=== PATIENT | male | born 2000 | race Caucasian/White ===

== ENCOUNTER 2024-10-30 15:08 | Emergency (ER) | payer OTHER, SELFPAY ==
--- NOTE | ~2024-10-30 | XR_ITS ---
EXAMINATION: XR HAND, LEFT CLINICAL INFORMATION: trauma. Injury 6 weeks ago with hydropic machine. COMPARISON: None available. TECHNIQUE: PA, lateral, and oblique views of the left hand. FINDINGS: There are nondisplaced transverse fractures of mid diaphysis of mid phalanx third and fourth digits with mild soft tissue swelling. There is no callus formation seen yet. Rest of the phalanges and the metacarpals are unremarkable. The joint spaces are well aligned. There is no dislocation. XR/XR hand LT min 3V IMPRESSION: Nondisplaced fractures of mid diaphysis middle phalanx third and fourth digit. Moderate soft tissue swelling. Electronically signed by: Rick Hoffman MD 10/30/2024 04:01 PM EDT
[2024-10-30 15:32] VITALS: BP 132/92; PULSE 109; RESP 20; TEMP 36.9; O2SAT 96; BMI 16.9
--- NOTE | 2024-10-30 15:33 | ED.GENADULT ---
HPI - General Adult General Chief complaint: Extremity Problem Stated complaint: Work injury Time Seen by Provider: 10/30/24 16:46 Source: patient, RN notes reviewed and old records reviewed Mode of arrival: ambulatory Limitations: no limitations History of Present Illness ED Provider: Ted LAW narrative: 24-year-old male presents for evaluation of a left hand injury. Patient reports he crashed his left hand at work 6 weeks ago. He was seen at urgent care and diagnosed with a fracture of the 3rd and 4th middle phalanx. He reports he was put in finger splints for about 4 weeks He was concerned because he is still not able to completely bend his left 3rd and 4th fingers. He has had no further injury. Denies any fevers until Related Data Allergies Allergy/AdvReac Type Severity Reaction Status Date / Time No Known Allergies Allergy Verified 10/30/24 15:33 Review of Systems Musculoskeletal: Musculoskeletal: Reports arthralgias, Reports joint swelling and Reports limited range of motion PMFSH Social History Social History Advance Directives: No Advance Directives Information Provided: No Do you have a plan to hurt others: No Plan Physical Exam ED Vital Signs: Vital Signs - 24 hr 10/30/24 15:32 Temperature 98.5 F Pulse Rate 109 H Respiratory Rate 20 Blood Pressure 132/92 H Pulse Oximetry 96 Oxygen Delivery Method Room Air BMI result Body Mass Index 16.9 Const General: healthy appearing, comfortable, no acute distress, alert and awake Nutritional Appearance: well nourished Orientation/consciousness: patient oriented x3 HENMT Head: Yes normocephalic and Yes atraumatic Eyes Eyelids: Yes eyelids normal Conjunctivae: conjunctivae normal Sclerae: sclerae normal Corneas: corneas normal Pupils: Equal, round and reactive pupils present EOM: EOMs intact bilaterally Neck Neck: Yes full ROM Resp Effort & Inspection: normal respiratory effort, able to speak in complete sentences and not labored Skin General skin exam: elasticity normal Neuro General: patient oriented x3 Cranial nerves: Yes Equal, round and reactive pupils present and Yes Bilaterally intact EOM present Cognition (Neuro): normal cognition Extrem Other: Is deformity to the distal half of the left 4th finger with angulation of the distal fragment. There was no significant tenderness to the 3rd and 4th digits. The patient is unable to flex at the D IP joint of the 3rd and 4th fingers Course Course Course Narrative: RME, this is a rapid medical exam performed by Chris Jean please refer to primary provider for complete H&P- 24 year old male presents for evaluation of left hand injury 6 weeks ago. He was seen for a crush injury and was referred by urgent care to see if I need physical therapy or surgery. Plan for x-ray Medical Decision Making Medical Decision Making MDM Narrative: 24-year-old male presents for evaluation left hand injury that happened 6 weeks ago. He was seen and evaluated care. Some healed lacerations on the extensor surfaces but not on the flexor surfaces. The patient's x-ray shows subacute fracture of the 3rd and 4th middle phalanx. I discussed with hand surgery, Agatha Frias, who recommends gentle range of motion exercises to the left hand but no additional splinting. He will follow up in the office. Differential Diagnosis Differential Diagnoses: The differential diagnosis associated with the presentation includes Subacute fracture Contusion Ligamentous injury Tendon injury Dislocation Consult Healthcare Provider Management of the patient was discussed with: Plant Technician/Control Room Operator Independent Interpretation I performed an independent interpretation of an: Plain X-Ray Interpretation: Agree with Radiology interpretation Radiology Impression Discussion of test interpretation with radiology: I have reviewed the radiologist's reading. Radiologist Impression: FINDINGS: There are nondisplaced transverse fractures of mid diaphysis of mid phalanx third and fourth digits with mild soft tissue swelling. There is no callus formation seen yet. Rest of the phalanges and the metacarpals are unremarkable. The joint spaces are well aligned. There is no dislocation. XR/XR hand LT min 3V IMPRESSION: Nondisplaced fractures of mid diaphysis middle phalanx third and fourth digit. Moderate soft tissue swelling. Electronically signed by: Rick Hoffman MD 10/30/2024 04:01 PM EDT Discharge Plan Discharge Clinical Impression: Finger fracture, left Patient Disposition: Home, Self-Care Instructions: Finger Fracture (ED) Additional Instructions: You have a subacute fracture of the left 3rd and 4th middle phalanx. Follow-up with hand surgery, Dr. Parr at the number provided. It was important to gently work on range of motion as discussed Referrals: Ryanne Parr MD [Physician] - (subacute left 3rd and 4th middle phalynx fractures) Stand Alone Forms: Work/School Release Print Language: Cook Islander
== END 2024-10-30 17:21 | disposition home or self-care (01) ==
PROVIDERS: Emergency Provider Emergency Medicine
DX: S62.653A Nondisplaced fracture of middle phalanx of left middle finger, initial encounter for closed fracture (principal); S62.655A Nondisplaced fracture of middle phalanx of left ring finger, initial encounter for closed fracture; W31.89XA Contact with other specified machinery, initial encounter; Y93.89 Activity, other specified; Y92.89 Other specified places as the place of occurrence of the external cause; Y99.0 Civilian activity done for income or pay
CPT/HCPCS: 73130; 99281; 99283

== ENCOUNTER → 2024-10-30 15:34 | Outpatient (BNV) | payer SELFPAY | PROVIDERS: Visit Provider Radiology Diagnostic Radiology | DX: S62.654A Nondisplaced fracture of middle phalanx of right ring finger, initial encounter for closed fracture (principal); S62.652A Nondisplaced fracture of middle phalanx of right middle finger, initial encounter for closed fracture | CPT/HCPCS: 73130 ==

== ENCOUNTER 2024-12-04 09:00 | Outpatient (REF) | payer OTHER, SELFPAY ==
--- NOTE | ~2024-12-04 | XR_ITS ---
EXAMINATION: XR HAND 3 OR MORE VIEWS LEFT HISTORY: M79.642 - Pain in left hand COMPARISON: Comparison is made with the prior examination dated 10/30/2024. FINDINGS: Three views of the left hand are submitted. Osseous mineralization is normal. Again seen are fractures of the middle phalanges of the 3rd and 4th fingers. Again seen is a small amount of bridging bone involving both fractures, slightly greater than on the prior study. The fracture lines remain visible. The joint spaces are preserved. The soft tissues are unremarkable. XR/XR hand LT min 3V IMPRESSION: Healing fractures of the middle phalanges of the 3rd and 4th fingers. Electronically signed by: Erik Rainey MD 12/04/2024 10:01 AM EDT
--- OUTSIDE RECORDS SUMMARY | 2024-12-05 09:25 | XMS_ITS | Data Portability ---
Author Organization [facility] [address] Address [address] [place] [address] Assessment No assessment recorded. Plan of Treatment Reminders Order Date Submit Date Provider Last Modified By Organization Details Last Modified Time Details Appointments None record ed. Lab None record ed. Referral None record ed. Procedures None record ed. Surgeries None record ed. Imaging None record ed. Medication Orders None record ed. Patient TargetsNo targets recorded. Patient InstructionsNo instructions recorded. Reason for Referral None Reported. Medical Equipment None Reported. Vitals None Recorded Social History None recorded. Functional Status None recorded. Mental Status None recorded. Family History Nothing Reported. Medical History No medical history recorded. Past Encounters Encounter ID Performer Location Encounter Start Date Encounter Closed Date Diagnosis/Indication Diagnosis SNOMED-CT Code Diagnosis ICD10 Code Diagnosis Note [id number] [address] [place] [address] 09/16/2019 17:31:01 09/16/2019 18:27:12 [id number] [address] [address] [place] [address] 07/01/2018 16:13:44 07/01/2018 18:03:30 [id number] [address] [place] [address] 2020 18:18:23 2020 19:15:40 [id number] [address] [place] [address] 04/20/2021 13:19:53 04/20/2021 15:49:02 [id number] [address] [facility] KRISSY Haq [address] 03/04/2022 18:57:25 03/04/2022 19:09:54 [id number] [facility] [address] [address] [place] [address] 06/16/2022 13:17:48 06/16/2022 16:26:29 Left without being seen [id number] 9102 Z53.21 Health Concerns Section Related Observation LastModified by Organization Detai ls LastModified Time None Recorded Concern Status LastModified by Organization Details LastModified Time None Recorded Advance Directives Directive None Recorded Payers Insurance Date Sequence Insurance Name Policy Number Policy June Covered Member ID June Member ID Guarantor Name 06/16/2022 1 [facility] [id number] 1 Kev Izaguirre [id number] Kev Izaguirre
== END 2024-12-04 09:01 | disposition home or self-care (01) ==
LOC: HO.HOSX 09:00
PROVIDERS: Visit Provider Orthopaedic Surgery
DX: M79.642 Pain in left hand (principal); M25.462 Effusion, left knee; S62.603A Fracture of unspecified phalanx of left middle finger, initial encounter for closed fracture; S62.605G Fracture of unspecified phalanx of left ring finger, subsequent encounter for fracture with delayed healing
CPT/HCPCS: 73130; 99202

== ENCOUNTER 2024-12-04 09:28 | Outpatient (AMB) | payer OTHER, SELFPAY ==
[2024-12-04 10:18] VITALS: BMI 16.9
--- NOTE | 2024-12-04 10:18 | MHC.OFFVIS ---
Vital Signs 12/04/24 10:18 Height 6 ft 4 in Weight 139 lb BMI 16.9 Intake Visit Reasons: ED/FC of the LT 3rd & 4th middle phalanx-DOI? Intake Note: Kev 24 yr old male presents today for a ED follow up visit from 10/30/24. Patient reports he crushed his left hand at work approx 6 weeks ago. He was seen at urgent care and was diagnosed with a fracture of the 3rd and 4th middle phalanx. He reports he was put in finger splints for about 4 weeks. Currently states he has concerns due to stiffness and limited ROM at his DIP in both of his fingers. He reports no pain. Denies numbness or tingling. Allergies No Known Allergies Allergy (Verified 12/04/24 10:20) HPI HPI ED/FC of the LT 3rd & 4th middle phalanx-DOI?: Details: Kev is a 24 year old right hand dominant man who presents for a left hand fracture. He suffered a crush injury at work on ~09/15/24. He was seen at urgent care and placed in a splint. He was seen in the ED on 10/30/24 for hand stiffness and pain. This is the 1st time he is being seen in our clinic. He says he is doing well in regards to pain. His chief complain is of limited ROM of his middle & ring fingers. He denies having any cuts on the volar aspect of his fingers when he injured his hand. He said he had some small open wounds on the dorsal aspect of the fingers, and was treated with antibiotics. 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 Review of Systems Const All systems reviewed & are unremarkable except as noted in HPI and below Physical Exam Vital Signs: BMI result Body Mass Index 16.9 Const General: cooperative, healthy appearing and no acute distress Orientation/consciousness: patient oriented x3 HEENT Head: Yes normocephalic and Yes atraumatic Eyes EOM: EOMs intact bilaterally Resp Effort & Inspection: normal respiratory effort and able to speak in complete sentences Cardio Jugular venous distension: no JVD Skin General skin exam: turgor normal Rashes: no rashes Neuro General: patient oriented x3 Extrem Other: Evaluation of Left Upper Extremity: The patient is alert, oriented, and in no acute distress Neuro: Median, Ulnar, Radial nerves motor and sensory intact and sensation is normal to the tips of all digits Vascular: Cap refill brisk ROM: He can bring all fingers into full active extension. He has active flexion at the middle & ring finger PIP joints to ~80 degrees Small amount of demonstrated flexion at the DIP joints, good resistance with active flexion. Skin: He has some healed wounds on the dorsal aspect of the middle and ring finger middle phalanxes. They have healed well with no evidence of infection. General: No Ecchymosis. No Erythema or evidence of infection. Radiographs: 3 views of the left hand were taken and viewed by me today in clinic. They show a middle finger middle phalanx shaft fracture, transvserse, with some evidence of bony healing, fracture line still visible. overall sat alignment. There is also a ring finger middle phalanx shaft fracture, transverse, healing with delayed union Psych Appearance: grossly normal Affect: normal affect Attitude: cooperative Assessment & Plan Assessment & Plan (1) Stiffness of left hand joint: Code(s): M25.642 - Stiffness of left hand, not elsewhere classified Category: Medical (2) Fracture of phalanx of left middle finger: Code(s): S62.603A - Fracture of unspecified phalanx of left middle finger, initial encounter for closed fracture Category: Medical (3) Fracture of phalanx of left ring finger with delayed healing: Code(s): S62.605G - Fracture of unspecified phalanx of left ring finger, subsequent encounter for fracture with delayed healing Category: Medical Plan Assessment & Plan: 1. Left middle finger middle phalanx fracture 2. Left ring finger middle phalanx fracture, with some evidence of delayed union. DOI: ~09/15/24 These were managed non-operatively, as patient was not seen by us until today. While radiographically there is some evidence of delayed union, both fractures are now completely nontender. This is a work injury, crush injury while working as a engineer remote control diesel. 3. Left FDP tendon dysfunction to middle finger 4. Left FDP tendon dysfunction to ring finger Most likely due to disuse and possible adhesions of FDP tendons Chances of laceration small FDS function intact I educated him about these conditions His fracture sites show evidence of healing, but are not yet fully healed I discussed treatment options I talked about activity modification and avoiding ball sports or other areas where he may jammed his finger. Fractures appear to be healing well and will likely go on to heal unless re-injured. Most importantly, she needs to start working on active range of motion exercises, and trying to get the FDP tendon to start sliding within the tendon sheath. 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 He will follow up in 6 weeks for a ROM check, sooner if he has any concerns Scribed for Ryanne Parr MD by Bean Dean, medical dosimetrist, on 12/04/24 at 10:30 AM, EST. Orders: Orders XR hand LT min 3V Today M79.642 - Pain in left hand OT Evaluation and Treatment Today M25.642 - Stiffness of left hand, not elsewhere classified, S62.603A - Fracture of unspecified phalanx of left middle finger, initial encounter for closed fracture, S62.605G - Fracture of unspecified phalanx of left ring finger, subsequent encounter for fracture with delayed healing Coding Level of Care Code New Pt Level 4 (72427) Diagnoses Stiffness of left hand joint M25.642 Fracture of phalanx of left middle finger S62.603A Fracture of phalanx of left ring finger with delayed healing S62.605G
--- OUTSIDE RECORDS SUMMARY | 2024-12-04 10:33 | XMS_ITS | Encounter Summary ---
Author Organization [facility] Address [address] [place] [address] Phone Care Team Providers Care Telephone Interviewer Name Role Phone Viral Ramirez MD Primary Care Provider [phone] Encounter Details Date Type Department Care Team (Late st Contact Info) Description 07/23/2015 Documentation EM Family Medicine [address] [place] [address] Family Medicine, Physician [address] [place], [place] [id number] Social History Tobacco Use Types Packs/Day Years Used Date Smoking Tobacco: Never Assessed Sex and Gender Information Value Date Recorded Sex Assigned at Not on file Legal Sex Male 5:07 PM EDT Gender Identity Not on file Sexual Orientation Not on file documented as of this encounter Plan of Treatment Not on file documented as of this encounter Visit Diagnoses Not on filedocumented in this encounter Care Teams Telephone Interviewer Relationship Specialty Start Date End Date Viral Ramirez MD [address] [place] [address] KRISSY Spears [id number] PCP - General 02/11/17 10/13/22 documented as of this encounter
== END 2024-12-04 10:39 | disposition home or self-care (01) ==
LOC: HO.HOS 09:29
PROVIDERS: Visit Provider Orthopaedic Surgery
DX: M25.642 Stiffness of left hand, not elsewhere classified (principal); S62.603A Fracture of unspecified phalanx of left middle finger, initial encounter for closed fracture; S62.605G Fracture of unspecified phalanx of left ring finger, subsequent encounter for fracture with delayed healing
CPT/HCPCS: 99203

== ENCOUNTER → 2024-12-04 09:30 | Outpatient (BNV) | payer OTHER, SELFPAY | PROVIDERS: Visit Provider Radiology Diagnostic Radiology | DX: S62.623D Displaced fracture of middle phalanx of left middle finger, subsequent encounter for fracture with routine healing (principal); S62.624D Displaced fracture of middle phalanx of right ring finger, subsequent encounter for fracture with routine healing | CPT/HCPCS: 73130 ==

== ENCOUNTER 2025-01-15 10:47 | Outpatient (REF) | payer OTHER, SELFPAY ==
--- NOTE | ~2025-01-15 | XR_ITS ---
EXAMINATION: XR HAND, LEFT CLINICAL INFORMATION: M79.642 - Pain in left hand, fracture healing COMPARISON: October 30 and December 04, 2024 TECHNIQUE: PA, lateral, and oblique views of the left hand. FINDINGS: Faint lucency through the central portion of the middle phalanx of third digit remains partially visible. There is evidence of remodeling and bridging cortical and cancellous bone . Fourth digit demonstrates incomplete partial lucency through the middle portion of the middle phalanx with bridging cortical and cancellous bone and early remodeling. XR/XR hand LT min 3V IMPRESSION: Continued healing of subacute fractures involving the middle phalanx of the third and fourth digits of the left hand. Electronically signed by: Shoaib Schaeffer MD 01/15/2025 02:41 PM EDT
--- OUTSIDE RECORDS SUMMARY | 2025-01-16 11:31 | XMS_ITS | Encounter Summary ---
Author Organization [facility] Address [address] [place] [address] Phone Care Team Providers Care Leather Production Machine Operator Name Role Phone Viral Ramirez MD Primary Care Provider [phone] Encounter Details Date Type Department Care Team (Late st Contact Info) Description 07/23/2015 Documentation EM Family Medicine [address] [place] [address] Family Medicine, Physician [address] [place], [place] [phone] Social History Tobacco Use Types Packs/Day Years [...] on filedocumented in this encounter Care Teams Leather Production Machine Operator Relationship Specialty Start Date End Date Viral Ramirez MD [address] [place] [address] KRISSY Spears [address] PCP - General 02/11/17 10/13/22 documented as of this encounter
--- OUTSIDE RECORDS SUMMARY | 2025-01-16 11:31 | XMS_ITS | Patient Health Record ---
[facility] Organization [facility] Address [address] [facility] [address] [place], [place] [id number] Support Name Relationship Address Phone Dmitriy Kev Guarantor Unknown [phone] Allergies No Known Allergies Reason For Referral No Information Social History Sex Assigned At : Social History Observation Description Sex Assigned At Male Section Notes: Aptima/ bw Plan Of Treatment No Information Insurance Providers Payer Name Payer Address Payer Phone Subscriber Number Group Number Insured Name Patient Relationship to Insured Coverage Start Date Coverage End Date [facility] [address] [place], [place] [id number] Kev Izaguirre Self - patient is the insured Medical (General) History Medical History History ICD Code No significant problems
== END 2025-01-15 10:48 | disposition home or self-care (01) ==
LOC: HO.HOSX 10:47
PROVIDERS: Visit Provider Orthopaedic Surgery
DX: S62.623D Displaced fracture of middle phalanx of left middle finger, subsequent encounter for fracture with routine healing (principal); S62.625G Displaced fracture of middle phalanx of left ring finger, subsequent encounter for fracture with delayed healing; W23.0XXD Caught, crushed, jammed, or pinched between moving objects, subsequent encounter; Y99.0 Civilian activity done for income or pay
CPT/HCPCS: 73130; 99212

== ENCOUNTER 2025-01-15 14:24 | Outpatient (AMB) | payer OTHER, SELFPAY ==
[2025-01-15 15:21] VITALS: BMI 16.9
--- NOTE | 2025-01-15 15:21 | MHC.OFFVIS ---
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 At his last visit he was advise to start O.T and work on his ROM. Currently states he has worked on his ROM however he is still limited. States he has no pain. Allergies No Known Allergies Allergy (Verified 01/15/25 15:26) HPI HPI OV- L MF and RF middle phalanx fx WC DOI 09/15/24: Details: Kev is a 24 year old right hand dominant man who returns for a left middle & ring finger fracture. He suffered a crush injury at work on ~09/15/24. He says he is doing well in regards to pain. His chief complain is of limited ROM of his middle & ring fingers. He says he has been working on ROM exercises at home but still feels limited in his motion.? He has not been attending OT hand therapy, and says he thought the plans was to start after today's appointment He was initially seen at urgent care and placed in a splint. He was seen in the ED on 10/30/24 for hand stiffness and pain. It looks like there was some difficulty contacting this patient and coordinating getting him in for an appointment in our clinic, therefore he was 1st seen by me in our clinic on 12/04/2024. 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 They show a middle finger middle phalanx shaft fracture, transvserse, with good evidence of bony healing and overall satisfactory fracture alignment. There is also a ring finger middle phalanx shaft fracture, healed Assessment & Plan Assessment & Plan (1) Stiffness of left hand joint: Code(s): M25.642 - Stiffness of left hand, not elsewhere classified Category: Medical (2) Fracture of phalanx of left middle finger: Code(s): S62.603A - Fracture of unspecified phalanx of left middle finger, initial encounter for closed fracture Category: Medical (3) Fracture of phalanx of left ring finger with delayed healing: Code(s): S62.605G - Fracture of unspecified phalanx of left ring finger, subsequent encounter for fracture with delayed healing Category: Medical Plan Assessment & Plan: 1. Left middle finger middle phalanx fracture healed 2. Left ring finger middle phalanx fracture, initially with some evidence of delayed union. Now with improved evidence of healing across the fracture. DOI: ~09/15/24 These were managed non-operatively, as patient was not seen by us until 12/04/2024. 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 First seen here on 12/04/24 It sounds like he initially went to an urgent care center to be seen for this injury. He was eventually seen in our emergency department in the end of January 2025. That point he was referred to our hand clinic, but there was difficulty contacting and coordinating with the patient to get him seen in clinic, and thus he was not seen until 12/04/2024 in our clinic for the 1st time. 3. Left FDP tendon dysfunction to middle finger 4. Left FDP tendon dysfunction to ring finger Most likely due to disuse and possible adhesions of FDP tendons Chances of laceration small FDS function intact I educated him about these conditions His fracture sites show good evidence of healing and are no longer tender I discussed treatment options, including possible operative intervention to free up the FDP tendons from possible tendon adhesions limiting excursion.. We will see how he is doing after OT hand therapy. He is unlikely to cause any harm to his finger fractures by doing so. I recommend OT hand therapy, and he is in agreement. He did not attend his previously ordered course of OT hand therapy as he thought he was supposed to begin OT after today. 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 It sounds like he may be having trouble with his place of employment possibly not filing the workmen's comp paperwork, as he says he has not received any money. When we saw him on 12/04/2024 we returned him to work on light duty with a 2lb weight limit at his 1st appointment with us. Again the patient said he had lost his job by that time, and he has not obtained other employment. Today, He was given a note saying he can return to work on full duty, with time off to attend OT, until his next appointment. He will follow up in 6-8 weeks for a ROM check. We can then evaluate how he is doing with regards to hand function, and whether or not it might be necessary or beneficial to consider release of adhesions from the FDP tendons.. Scribed for Ryanne Rodriguez MD by Bean Dean, medical practice assistant, on 01/15/25 at 3:40 PM, EST. Orders: Orders XR hand LT min 3V 01/15/25 M79.642 - Pain in left hand Coding Level of Care Code Est Pt Level 4 (94453) Diagnoses Stiffness of left hand joint M25.642 Fracture of phalanx of left middle finger S62.603A Fracture of phalanx of left ring finger with delayed healing S62.605G
--- OUTSIDE RECORDS SUMMARY | 2025-01-15 15:42 | XMS_ITS | Patient Health Record ---
Author Organization [facility] Address [address] [facility] [address] [place], [place] [id number] Support Name Relationship Address Phone Dmitriy Kev Guarantor Unknown [phone] Allergies No Known Allergies Reason For Referral No Information Social History Sex Assigned At : Social History Observation Description Sex Assigned At Male Section Notes: Aptima/ bw Plan Of Treatment No Information Insurance Providers Payer Name Payer Address Payer Phone Subscriber Number Group Number Insured Name Patient Relationship to Insured Coverage Start Date Coverage End Date [facility] [address] [place], [place] [id number] Kev Izaguirre Self - patient is the insured Medical (General) History Medical History History ICD Code No significant problems
--- OUTSIDE RECORDS SUMMARY | 2025-01-15 15:42 | XMS_ITS | Encounter Summary ---
Author Organization [facility] Address [address] [place] [address] Phone Care Team Providers Care Marker Shipments Name Role Phone Viral Ramirez MD Primary Care Provider [phone] Encounter Details Date Type Department Care Team (Late st Contact Info) Description 07/23/2015 Documentation EM Family Medicine [address] [place] [address] Family Medicine, Physician [address] [place], [place] [phone] Social History Tobacco Use Types Packs/Day Years [...] on filedocumented in this encounter Care Teams Marker Shipments Relationship Specialty Start Date End Date Viral Ramirez MD [address] [place] [address] KRISSY Spears [id number] PCP - General 02/11/17 10/13/22 documented as of this encounter
--- OUTSIDE RECORDS SUMMARY | 2025-01-15 15:42 | XMS_ITS | Data Portability ---
Author Organization [facility], [address] Address [address] [place] [address] Assessment No assessment recorded. Plan of Treatment [...] SNOMED-CT Code Diagnosis ICD10 Code Diagnosis Note [id number] [address] [address] [address] [place] [address] 09/16/2019 17:31:01 09/16/2019 18:27:12 [id number] [address] [address] [address] [place] [address] 07/01/2018 16:13:44 07/01/2018 18:03:30 [id number] [address] [address] [place] [address] 2020 18:18:23 2020 19:15:40 [id number] [address] [address] [place] [address] 04/20/2021 13:19:53 04/20/2021 15:49:02 [id number] [facility] [address] [facility] KRISSY Haq [address] 03/04/2022 18:57:25 03/04/2022 19:09:54 [id number] [facility] [address] [facility] [place] [address] 06/16/2022 13:17:48 06/16/2022 16:26:29 Left without being seen [id number] Z53.21 Health Concerns Section Related Observation LastModified by Organization Detai ls LastModified Time None Recorded Concern Status LastModified by Organization Details LastModified Time None Recorded Advance Directives Directive None Recorded Payers Insurance Date Sequence Insurance Name Policy Number Policy June Covered Member ID June Member ID Guarantor Name 06/16/2022 1 [facility] [id number] Kev Izaguirre [id number] Kev Izaguirre
== END 2025-01-15 15:52 | disposition home or self-care (01) ==
LOC: HO.HOS 14:24
PROVIDERS: Visit Provider Orthopaedic Surgery
DX: M25.642 Stiffness of left hand, not elsewhere classified (principal); S62.603D Fracture of unspecified phalanx of left middle finger, subsequent encounter for fracture with routine healing; S62.605G Fracture of unspecified phalanx of left ring finger, subsequent encounter for fracture with delayed healing
CPT/HCPCS: 99214

== ENCOUNTER → 2025-01-15 14:26 | Outpatient (BNV) | payer OTHER, SELFPAY | PROVIDERS: Visit Provider Radiology Diagnostic Radiology | DX: S62.622A Displaced fracture of middle phalanx of right middle finger, initial encounter for closed fracture (principal) | CPT/HCPCS: 73130 ==

== ENCOUNTER 2025-02-25 11:30 | Outpatient (RCR) | payer OTHER, SELFPAY ==
--- NOTE | 2025-01-21 16:17 | MHC.OT.EP ---
[address] [phone] Occupational Therapy Plan of Care Patient Name: Kev Izaguirre Date of Evaluation: 01/21/25 Diagnosis: L hand RF & MF fracture Pain Location: Pain Score: 1 Pain Scale Used: Numeric (0 - 10) Aggravating Factors: Alleviating Factors: Assessment: Pt is a R hand dominant male putting a cylinder in an excavator cylinder crushed both digits on his L RF, MF on 08/05 - went to [facility]; splinted for 6 weeks BY [facility] AND THEN PT. HAD FOLLOW UPS W/ urgent care. Pt had difficulty healing (SLOW PROGRESS) and presents today w/ minimal swelling of his PIP J (MF) and decreased AROM of the DIP J's of his RF/MF. Pt was referred to skilled OT Therapy to address these deficits and Return pt. to his previous level of function Frequency and Duration: The patient will be seen 2xs a week for 4 weeks Short Term Goals: Pt will be complaint w/ his HEP Pt will be compliant w/ orthoses wear Retail Visual Merchandiser Goals: Pt will have 40 of AROM of his DIP J Of his L RF Pt marti have 40of AROM of his DIP J of his L MF Treatment Plan: Therapeutic Exercise Therapeutic Activity Home Exercise Program Splinting Neuro Re-ed Patient Education Desensitization/Sensory Re-ed Edema Control ADL Training Ultrasound NMES Iontophoresis Paraffin Fluidotherapy MHP Cold Packs Joint Mobilization Soft Tissue Mobilization Kinesiotaping Electronically Signed By: Luly Peacock OTR/L Please Sign and return to therapist. Thank you once again for your referral.
== END 2025-04-29 11:22 | disposition home or self-care (01) ==
LOC: HO.OT 11:30
PROVIDERS: Visit Provider Orthopaedic Surgery
DX: M25.642 Stiffness of left hand, not elsewhere classified (principal); S62.603D Fracture of unspecified phalanx of left middle finger, subsequent encounter for fracture with routine healing; S62.305D Unspecified fracture of fourth metacarpal bone, left hand, subsequent encounter for fracture with routine healing
CPT/HCPCS: 29130; 97035; 97110; 97165; 97535; 97760

== ENCOUNTER 2025-02-26 10:17 | Outpatient (AMB) | payer OTHER, SELFPAY ==
--- NOTE | 2025-02-26 10:56 | A.OFFVIS_ITS ---
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 At his last visit he was given a note saying he can return to work on full duty, with time off to attend OT, and was advise that at his next visit he would be re-evaluated to see if necessary or beneficial to consider release of adhesions from the FDP tendons. States he has been working with O.T and contiues to be limited ROM at his PIP. Allergies No Known Allergies Allergy (Verified 02/26/25 11:12) HPI HPI OV- L MF and RF middle phalanx fx WC DOI 09/15/24: Details: Kev is a 25 year old right hand dominant man who returns regarding his left middle & ring finger range of motion. He is here for a ROM check ?He initially suffered a crush injury with fractures of the middle and ring finger middle phalanxes at work on ~09/15/24. He was 1st seen in our clinic on 12/04/2024. The fracture is went on to heal well. However he went on to have improved flexion of the MCP and PIP joints with no active flexion at the D IP joints of these digits. He had no open injury at the time of his work-related injury. He has been working with OT hand therapy, and we have not seen improvement in active DIP flexion. It appears most likely that he developed adhesions of the FDP tendons at the fracture sites at the middle phalanxes. 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 He now has a workmen's compensation ip technology transactions attorney who is telling him not to return to work at this time. 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 Easy hyperextension of the index & small finger DIP joints Not demonstrating active flexion at the middle & ring finger DIP joint past neutral, though he is able to hold the DIP strong against resistance when testing FDP He is not demonstrating good FDP tendon function of the middle & ring fingers Ring & middle finger DIP joints resistant to hyperextension Fracture sites completely non-tender. Satisfactory clinical fracture alignment Psych Appearance: grossly normal Affect: normal affect Attitude: cooperative Assessment & Plan Assessment & Plan (1) Stiffness of left hand joint: Code(s): M25.642 - Stiffness of left hand, not elsewhere classified Category: Medical (2) Fracture of phalanx of left middle finger: Code(s): S62.603A - Fracture of unspecified phalanx of left middle finger, initial encounter for closed fracture Category: Medical (3) Fracture of phalanx of left ring finger with delayed healing: Code(s): S62.605G - Fracture of unspecified phalanx of left ring finger, subsequent encounter for fracture with delayed healing Category: Medical Plan Assessment & Plan: 1. Left middle finger FDP tendon dysfunction 2. Left ring finger FDP tendon dysfunction Most likely due possible adhesions of FDP tendons at the middle phalanx fracture sites Chances of tendon laceration small, as there was no open injury. FDS function intact I educated him about these conditions His fracture sites show good evidence of healing and are no longer tender I discussed treatment options, including possible operative intervention to free up the FDP tendons from possible tendon adhesions limiting excursion. No appreciable improvement in FDP tendon excursion after OT hand therapy. I think there is a good chance that the FDP tendons are caught in some scar tissue, and that we may be able to improve his finger function by freeing up the tendons from the scar tissue. He understands that if there was a laceration of the tendons, they are now not repairable. The risks and benefits of operative treatment were discussed with the patient and the patient wishes to proceed with surgery. These risks include, but are not limited to risk of damage to blood vessels, nerves, tendons, infection, recurrence, incomplete relief of preoperative symptoms, persistent pain, possible need for further surgery and the risks associated with regional blocks and anesthesia. The plan is to take the patient to the operating room sometime in the next few weeks for the following procedures: 1. Left middle finger Flexor tenolysis, under general 2. Left ring finger Flexor tenolysis, under general All of the preoperative paperwork including the consent was reviewed today. All the patient's questions were answered. The patient understands that they will be contacted by our rn outpatient surgery soon to schedule this procedure He denies Diabetes, blood thinners, asthma, heart, lung, kidney issues He will need an appointment with OT hand therapy 3-5 days post-op to begin work on ROM 3. Left middle finger middle phalanx fracture healed 4. Left ring finger middle phalanx fracture, healed DOI: ~09/15/24 These were managed non-operatively, as patient was not seen by us until 12/04/2024. 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 First seen here on 12/04/24 It sounds like he initially went to an urgent care center to be seen for this injury. He was eventually seen in our emergency department in the end of January 2025. 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 It sounded like he may have been having trouble with his place of employment possibly not filing the workmen's comp paperwork, as he says he has not received any money. He says his ip technology transactions attorney currently does not want him working while working on his worker's comp case. When we saw him on 12/04/2024 we returned him to work on light duty with a 2lb weight limit at his 1st appointment with us. Again the patient said he had lost his job by that time, and he has not obtained other employment. He is able to return to work at this time until his DOS Scribed for Ryanne Rchards, MD by Bean Dean, biomedical equipment tech, on 02/26/25 at 11:25 AM, EST. Coding Level of Care Code Est Pt Level 4 (05180) Diagnoses Stiffness of left hand joint M25.642 Fracture of phalanx of left middle finger S62.603A Fracture of phalanx of left ring finger with delayed healing S62.605G
--- OUTSIDE RECORDS SUMMARY | 2025-02-26 10:58 | XMS_ITS | Patient Health Record ---
Author Organization [facility] Address [address] [facility] [address] [place], [place] [phone] Support Name Relationship Address Phone Dmitriy Kev Guarantor Unknown [phone] Allergies No Known Allergies Reason For Referral No Information Social History Sex Assigned At : Social History Observation Description Sex Assigned At Male Section Notes: Aptima/ bw Plan Of Treatment No Information Insurance Providers Payer Name Payer Address Payer Phone Subscriber Number Group Number Insured Name Patient Relationship to Insured Coverage Start Date Coverage End Date [facility] [address] [place], [place] [id number] Kev Izaguirre Self - patient is the insured Medical (General) History Medical History History ICD Code No significant problems
--- OUTSIDE RECORDS SUMMARY | 2025-02-26 10:58 | XMS_ITS | Encounter Summary ---
Author Organization [facility] Address [address] [place] [address] Phone Care Team Providers Care Manager Inventory Management Name Role Phone Viral Ramirez MD Primary Care Provider [phone] Encounter Details Date Type Department Care Team (Late st Contact Info) Description 02/17/2017 Conversion Encounter [facility] [address] [place] [address] Social History Tobacco Use Types Packs/Day Years Used Date Smoking Tobacco: Never Comments:Never smoker Sex and Gender Information Value Date Recorded Sex Assigned at Not on file Legal Sex Male 5:07 PM EDT Gender Identity Not on file Sexual Orientation Not on file documented as of this encounter Plan of Treatment Not on file documented as of this encounter Visit Diagnoses Not on filedocumented in this encounter Care Teams Manager Inventory Management Relationship Specialty Start Date End Date Viral Ramirez MD [address] [place] [address] PCP - General 02/11/17 10/13/22 documented as of this encounter
--- OUTSIDE RECORDS SUMMARY | 2025-02-26 10:58 | XMS_ITS | Encounter Summary ---
Author Organization [facility] Address [address] [place] [address] Phone Care Team Providers Care Vp Sales Name Role Phone Viral Ramirez MD Primary Care Provider [phone] Encounter Details Date Type Department Care Team (Late st Contact Info) Description 06/18/2013 Documentation EM Family Medicine [address] [place] [address] Family Medicine, Physician [address] [place], [place] [phone] Social History Tobacco Use Types Packs/Day Years [...] on filedocumented in this encounter Care Teams Vp Sales Relationship Specialty Start Date End Date Viral Ramirez MD [address] [place] [address] KRISSY Spears [address] PCP - General 02/11/17 10/13/22 documented as of this encounter
--- OUTSIDE RECORDS SUMMARY | 2025-02-26 10:58 | XMS_ITS | Encounter Summary ---
Author Organization [facility] Address [address] [place] [address] Phone Care Team Providers Care Cable Assembler And Swager Name Role Phone Viral Ramirez MD Primary Care Provider [phone] Encounter Details Date Type Department Care Team (Late st Contact Info) Description 08/22/2015 Documentation EM Family Medicine [address] [place] [address] Family Medicine, Physician [address] [place], [place] [phone] Social History Tobacco Use Types Packs/Day Years [...] on filedocumented in this encounter Care Teams Cable Assembler And Swager Relationship Specialty Start Date End Date Viral Ramirez MD [address] [place] [address] KRISSY Spears [address] PCP - General 02/11/17 10/13/22 documented as of this encounter
--- OUTSIDE RECORDS SUMMARY | 2025-02-26 10:58 | XMS_ITS | Encounter Summary ---
Author Organization [facility] Address [address] [place] [address] Phone Care Team Providers Care Bench Assembler Electrical Name Role Phone Viral Ramirez MD Primary Care Provider [phone] Encounter Details Date Type Department Care Team (Late st Contact Info) Description 07/23/2015 Documentation EM Family Medicine [address] [place] [address] Family Medicine, Physician [address] [place], [place] [phone] Social History Tobacco Use Types Packs/Day Years [...] on filedocumented in this encounter Care Teams Bench Assembler Electrical Relationship Specialty Start Date End Date Viral Ramirez MD [address] [place] [address] KRISSY Spears [address] PCP - General 02/11/17 10/13/22 documented as of this encounter
--- OUTSIDE RECORDS SUMMARY | 2025-02-26 10:58 | XMS_ITS | Clinical Summary ---
Author Organization [facility] Address [address] [place] [address] Phone Care Team Providers Care Harness Cutter Name Role Phone Unavailable Primary Care Provider Unavailabl e Immunizations Immunization Administration Dates Next Due DTaP 5 02/23/2002, 9,1998,06/05,1998 Hep A, ped/adol 03/26/2015,03/12/2014 Hep B, ped/adol 1998,1998,1998 Hib (PRP-T) 1998,1998,1998 IPV 02/23/2002, 9,1998,04/09 Influenza, injectable, quadr ivalent, preservative free 05/03/2016,03/26/2015,03/12/2014 Influenza, intranasal, quadrivalent 02/26/2013 Influenza, intranasal, trivalent 03/22/2012,04/04 MMR 02/23/2002,05/11/1999 Meningococcal Conj (Menactra) MCV4P 03/26/2015,1 Tdap 04/29/2010 Varicella 10/03/2008,02/16/1999 Family History Relation Name Status Comments Father Alive Father: Alive a nd well Mother Mother: Cancer, breast, Alive and well Other No family histo ry of Obesity, No family history of Heart disease, No family history of CVA (Stroke), No family history of Migraines, No family history of Hyperlipidemia Paternal Grandfather Alive Paterna l grandfather: Thrombophilia Social History Tobacco Use Types Packs/Day Years Used Date Smoking Tobacco: Never Comments:Never smoker Sex and Gender Information Value Date Recorded Sex Assigned at Not on file Legal Sex Male 5:07 PM EDT Gender Identity Not on file Sexual Orientation Not on file Last Filed Vital Signs Vital Sign Reading Time Taken Comments Blood Pressure 120/86 05/03/2016 12:00 AM EDT Pulse 88 05/03/2016 12:00 AM EDT Temperature 36.6 C (97.9 F) 05/03/2016 12:00 AM EDT Respiratory Rate - - Oxygen Saturation - - Inhaled Oxygen Concentration - - Weight 64.5 kg (142 lb 3.2 oz) 05/03/2016 12:00 AM EDT Height 188.6 cm (6' 2.25 ) 05/03/2016 12:00 AM E DT Body Mass Index 18.13 05/03/2016 12:00 AM EDT Plan of Treatment Health Maintenance Due Date Last Done Comments DTaP,Tdap,and Td Vaccines (7 - Td or Tdap) 04/29/2020 04/29/2010, 02/23/2002, 05/11/1999, Additional history exists COVID-19 Vaccine (2023- season) 2024 Influenza Vaccines (#1) 2025 05/03/20 16, 03/26/2015, 03/12/2014, Additional history exists HPV Vaccines (1 - 3-dose SCDM series) 2025 HIB Vaccines Aged Out 1998, 09/1997, 1998 No longer eligible based on patient's age to complete this topic Hepatitis B Vaccines Completed 1998, 1998, 1998 IPV Vaccines Completed 02/23/2002, 02/01, 1998, Additional history exists MMR Vaccines Completed 02/23/2002, 05/11/1999 Varicella Vaccines Completed 10/03/2008, 02/16/1999 Hepatitis A Vaccines Completed 03/26/2015, 03/12/20 14 Meningococcal Vaccine Completed 03/26/2015, 010 Men B Vaccine Aged Out No longer elig ible based on patient's age to complete this topic Pneumococcal Vaccine Aged Out No long er eligible based on patient's age to complete this topic
[2025-02-26 11:10] VITALS: BMI 16.9
== END 2025-02-26 12:33 | disposition home or self-care (01) ==
LOC: HO.HOS 10:18
PROVIDERS: Visit Provider Orthopaedic Surgery
DX: M25.642 Stiffness of left hand, not elsewhere classified (principal); S62.603A Fracture of unspecified phalanx of left middle finger, initial encounter for closed fracture; S62.605G Fracture of unspecified phalanx of left ring finger, subsequent encounter for fracture with delayed healing
CPT/HCPCS: 99214

== ENCOUNTER → 2025-02-26 10:17 | Outpatient (BNVA) | payer OTHER, SELFPAY | PROVIDERS: Visit Provider Orthopaedic Surgery | DX: Z47.89 Encounter for other orthopedic aftercare (principal); M25.642 Stiffness of left hand, not elsewhere classified; S62.605G Fracture of unspecified phalanx of left ring finger, subsequent encounter for fracture with delayed healing; X58.XXXA Exposure to other specified factors, initial encounter; Y93.89 Activity, other specified; Y92.89 Other specified places as the place of occurrence of the external cause; Y99.0 Civilian activity done for income or pay | CPT/HCPCS: 99212 ==

== ENCOUNTER 2025-04-03 13:06 | Outpatient (AMB) | payer OTHER, SELFPAY ==
[2025-04-03 13:16] VITALS: BMI 18.3
--- NOTE | 2025-04-03 13:16 | MHC.OFFVIS ---
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 Patient is here to be re-evaluated to see if necessary or beneficial to consider release of adhesions from the FDP tendons. Allergies No Known Allergies Allergy (Verified 04/03/25 13:24) HPI HPI OV- L MF and RF middle phalanx fx WC DOI 09/15/24: Details: Kev is a 25 year old right hand dominant man who returns regarding his left middle & ring finger tendon dysfunction He initially suffered a crush injury with fractures of the middle and ring finger middle phalanxes at work on ~09/15/24. He was first seen in our clinic on 12/04/2024. The fracture is went on to heal well. However he went on to have improved flexion of the MCP and PIP joints with no active flexion at the DIP joints of these digits. He had no open injury at the time of his work-related injury. He worked with OT hand therapy, and has not seen improvement in active DIP flexion. It appears most likely that he developed adhesions of the FDP tendons at the fracture sites at the middle phalanxes. 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 He ended up getting laid off sometime in the early summer. He now has a workmen's compensation real estate associate attorney who is telling him not to return to work at this time. 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 Passive D IP flexion 45-50 degrees When his middle finger DIP joint is held in resisted hyperextension, he could actively flex a few degrees. He is able to hold the middle & ring finger DIP joints strong against resistance when testing FDP He is not demonstrating good FDP tendon function of the middle & ring fingers Ring & middle finger DIP joints resistant to hyperextension Easy hyperextension of the index & small finger DIP joints Fracture sites completely non-tender. Satisfactory clinical fracture alignment Psych Appearance: grossly normal Affect: normal affect Attitude: cooperative Assessment & Plan Assessment & Plan (1) Tendon dysfunction: Comment: L MF & RF FDP Code(s): M67.90 - Unspecified disorder of synovium and tendon, unspecified site Category: Medical (2) Stiffness of left hand joint: Code(s): M25.642 - Stiffness of left hand, not elsewhere classified Category: Medical (3) Fracture of phalanx of left middle finger: Code(s): S62.603A - Fracture of unspecified phalanx of left middle finger, initial encounter for closed fracture Category: Medical (4) Fracture of phalanx of left ring finger with delayed healing: Code(s): S62.605G - Fracture of unspecified phalanx of left ring finger, subsequent encounter for fracture with delayed healing Category: Medical Plan Assessment & Plan: 1. Left middle finger FDP tendon dysfunction 2. Left ring finger FDP tendon dysfunction Most likely due to possible adhesions of FDP tendons at the middle phalanx fracture sites Chances of tendon laceration small, as there was no open injury. FDS function intact I educated him about these conditions His fracture sites show good evidence of healing and are no longer tender I discussed treatment options, including possible operative intervention to free up the FDP tendons from possible tendon adhesions limiting excursion. No appreciable improvement in FDP tendon excursion after OT hand therapy. I think there is a good chance that the FDP tendons are caught in some scar tissue, and that we may be able to improve his finger function by freeing up the tendons from the scar tissue. He understands that if there was a laceration of the tendons, they are now not repairable. The risks and benefits of operative treatment were discussed with the patient and the patient wishes to proceed with surgery. These risks include, but are not limited to risk of damage to blood vessels, nerves, tendons, infection, recurrence, incomplete relief of preoperative symptoms, persistent pain, possible need for further surgery and the risks associated with regional blocks and anesthesia. The plan is to take the patient to the operating room sometime in the next few weeks for the following procedures: 1. Left middle finger Flexor tenolysis, under general 2. Left ring finger Flexor tenolysis, under general All of the preoperative paperwork including the consent was reviewed today. All the patient's questions were answered. The patient understands that they will be contacted by our assistant professor of surgery soon to schedule this procedure. Let Danika in OR know we will require the Tenolysis Knives for this procedure He denies Diabetes, blood thinners, asthma, heart, lung, kidney issues He will need an appointment with OT hand therapy 3-5 days post-op to begin work on ROM 3. Left middle finger middle phalanx fracture healed 4. Left ring finger middle phalanx fracture, healed DOI: ~09/15/24 These were managed non-operatively, as patient was not seen by us until 12/04/2024. 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 First seen here on 12/04/24 It sounds like he initially went to an urgent care center to be seen for this injury. He was eventually seen in our emergency department in the end of January 2025. 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 It sounded like he may have been having trouble with his place of employment possibly not filing the workmen's comp paperwork, as he says he has not received any money. He says his real estate associate attorney currently does not want him working while working on his worker's comp case. When we saw him on 12/04/2024 we returned him to work on light duty with a 2lb weight limit at his 1st appointment with us. Again the patient said he had lost his job by that time, and he has not obtained other employment. He is able to return to work at this time until his DOS Scribed for Ryanne Rodriguez MD by Bean Dean, medical transcription radiology, on 04/03/25 at 1:25 PM, EST. Coding Level of Care Code Est Pt Level 4 (49324) Diagnoses Tendon dysfunction M67.90 Stiffness of left hand joint M25.642 Fracture of phalanx of left middle finger S62.603A Fracture of phalanx of left ring finger with delayed healing S62.605G
--- OUTSIDE RECORDS SUMMARY | 2025-04-03 14:24 | XMS_ITS | Clinical Summary ---
Author Organization [facility] Address [address] [place] [address] Phone Care Team Providers Care Senior Data Quality Analyst Name Role Phone Unavailable Primary Care Provider [...] 04/29/2020 04/29/2010, 02/23/2002, 05/11/1999, Additional history exists Influenza Vaccines (#1) 2025 05/03/20 16, 03/26/2015, 03/12/2014, Additional history exists HPV Vaccines (1 - 3-dose SCDM series) 2025 COVID-19 Vaccine (2024- season) 2025 HIB Vaccines Aged Out 1998, 09/1997, [...]
--- OUTSIDE RECORDS SUMMARY | 2025-04-03 14:24 | XMS_ITS | Encounter Summary ---
Author Organization [facility] Address [address] [place] [address] Phone Care Team Providers Care Business Continuity Specialist Name Role Phone Viral Ramirez MD Primary Care Provider [phone] Encounter Details Date Type Department Care Team (Late st Contact Info) Description 07/23/2015 Documentation EM Family Medicine [address] [place] [address] Family Medicine, Physician [address] [place], [place] [phone] Social History Tobacco Use Types Packs/Day Years [...] on filedocumented in this encounter Care Teams Business Continuity Specialist Relationship Specialty Start Date End Date Viral Ramirez MD [address] [place] [address] KRISSY Spears [address] PCP - General 02/11/17 10/13/22 documented as of this encounter
--- OUTSIDE RECORDS SUMMARY | 2025-04-03 14:24 | XMS_ITS | Encounter Summary ---
Author Organization [facility] Address [address] [place] [address] Phone Care Team Providers Care Network Professional Name Role Phone Viral Ramirez MD Primary Care Provider [phone] Encounter Details Date Type Department Care Team (Late st Contact Info) Description 08/22/2015 Documentation EM Family Medicine [address] [place] [address] Family Medicine, Physician [address] [place], [place] [phone] Social History Tobacco Use Types Packs/Day Years [...] on filedocumented in this encounter Care Teams Network Professional Relationship Specialty Start Date End Date Viral Ramirez MD [address] [place] [address] KRISSY Spears [id number] PCP - General 02/11/17 10/13/22 documented as of this encounter
--- OUTSIDE RECORDS SUMMARY | 2025-04-03 14:24 | XMS_ITS | Encounter Summary ---
Author Organization [facility] Address [address] [place] [address] Phone Care Team Providers Care Rosin Barrel Filler Name Role Phone Viral Ramirez MD Primary Care Provider [phone] Encounter Details Date Type Department Care Team (Late st Contact Info) Description 02/17/2017 Conversion Encounter [facility] [place] [address] [place] [address] Social History Tobacco Use Types Packs/Day Years [...] on filedocumented in this encounter Care Teams Rosin Barrel Filler Relationship Specialty Start Date End Date Viral Ramirez MD [address] [place] [address] PCP - General 02/11/17 10/13/22 documented as of this encounter
--- OUTSIDE RECORDS SUMMARY | 2025-04-03 14:24 | XMS_ITS | Encounter Summary ---
Author Organization [facility] Address [address] [place] [address] Phone Care Team Providers Care Flowers Salesperson Name Role Phone Viral Ramirez MD Primary Care Provider [phone] Encounter Details Date Type Department Care Team (Late st Contact Info) Description 06/18/2013 Documentation EM Family Medicine [address] [place] [address] Family Medicine, Physician [address] [place], [place] [phone] Social History Tobacco Use Types Packs/Day Years [...] on filedocumented in this encounter Care Teams Flowers Salesperson Relationship Specialty Start Date End Date Viral Ramirez MD [address] [place] [address] KRISSY Spears [address] PCP - General 02/11/17 10/13/22 documented as of this encounter
== END 2025-04-03 13:39 | disposition home or self-care (01) ==
LOC: HO.HOS 13:07
PROVIDERS: Visit Provider Orthopaedic Surgery
DX: M67.942 Unspecified disorder of synovium and tendon, left hand (principal); M25.642 Stiffness of left hand, not elsewhere classified; S62.603A Fracture of unspecified phalanx of left middle finger, initial encounter for closed fracture; S62.605G Fracture of unspecified phalanx of left ring finger, subsequent encounter for fracture with delayed healing
CPT/HCPCS: 99214

== ENCOUNTER → 2025-04-03 13:06 | Outpatient (BNVA) | payer OTHER, SELFPAY | PROVIDERS: Visit Provider Orthopaedic Surgery | DX: S62.653A Nondisplaced fracture of middle phalanx of left middle finger, initial encounter for closed fracture (principal); S62.655A Nondisplaced fracture of middle phalanx of left ring finger, initial encounter for closed fracture; W23.0XXA Caught, crushed, jammed, or pinched between moving objects, initial encounter; Y93.89 Activity, other specified; Y92.69 Other specified industrial and construction area as the place of occurrence of the external cause; Y99.0 Civilian activity done for income or pay; M25.642 Stiffness of left hand, not elsewhere classified; M67.90 Unspecified disorder of synovium and tendon, unspecified site | CPT/HCPCS: 99212 ==

== ENCOUNTER 2025-06-18 11:16 | Outpatient (AMB) | payer OTHER, SELFPAY ==
--- NOTE | 2025-06-18 11:23 | A.OFFVIS_ITS ---
Vital Signs 06/18/25 11:31 Height 6 ft 1 in Weight 139 lb BMI 18.3 Intake Visit Reasons: Preop LT MF/RF FDP tendon release 06/24/25 AR Intake Note: Kev is a 25 year old right hand dominant male who presents today Pre- operatively for discussion of their Left Middle & Ring Flexor Digitorum Profundus Tendon Release scheduled for 06/24/[address] Parr. Allergies No Known Allergies Allergy (Verified 06/18/25 11:29) HPI HPI Preop LT MF/RF FDP tendon release 06/24/25 AR: Details: Kev is a 25 year old right hand dominant male who presents today Pre- operatively for discussion of their Left Middle & Ring Flexor Digitorum Profundus Tendon Release scheduled for 06/24/[address] Parr. Patient reports no improvement in symptoms, denies any new medical diagnoses or new medication since previous evaluation. 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 Passive D IP flexion 45-50 degrees When his middle finger DIP joint is held in resisted hyperextension, he could actively flex a few degrees. He is able to hold the middle & ring finger DIP joints strong against resistance when testing FDP He is not demonstrating good FDP tendon function of the middle & ring fingers Ring & middle finger DIP joints resistant to hyperextension Easy hyperextension of the index & small finger DIP joints Fracture sites completely non-tender. Satisfactory clinical fracture alignment Psych Appearance: grossly normal Affect: normal affect Attitude: cooperative Assessment & Plan Assessment & Plan (1) Tendon dysfunction: Comment: L MF & RF FDP Code(s): M67.90 - Unspecified disorder of synovium and tendon, unspecified site Category: Medical (2) Stiffness of left hand joint: Code(s): M25.642 - Stiffness of left hand, not elsewhere classified Category: Medical (3) Fracture of phalanx of left middle finger: Code(s): S62.603A - Fracture of unspecified phalanx of left middle finger, initial encounter for closed fracture Category: Medical (4) Fracture of phalanx of left ring finger with delayed healing: Code(s): S62.605G - Fracture of unspecified phalanx of left ring finger, subsequent encounter for fracture with delayed healing Category: Medical Plan Assessment & Plan: 1. Left middle finger FDP tendon dysfunction 2. Left ring finger FDP tendon dysfunction Most likely due to possible adhesions of FDP tendons at the middle phalanx fracture sites Chances of tendon laceration small, as there was no open injury. FDS function intact I educated him about these conditions His fracture sites show good evidence of healing and are no longer tender I discussed treatment options, including possible operative intervention to free up the FDP tendons from possible tendon adhesions limiting excursion. No appreciable improvement in FDP tendon excursion after OT hand therapy. I think there is a good chance that the FDP tendons are caught in some scar tissue, and that we may be able to improve his finger function by freeing up the tendons from the scar tissue. He understands that if there was a laceration of the tendons, they are now not repairable. The risks and benefits of operative treatment were discussed with the patient and the patient wishes to proceed with surgery. These risks include, but are not limited to risk of damage to blood vessels, nerves, tendons, infection, recurrence, incomplete relief of preoperative symptoms, persistent pain, possible need for further surgery and the risks associated with regional blocks and anesthesia. The plan is to take the patient to the operating room sometime in the next few weeks for the following procedures: 1. Left middle finger Flexor tenolysis, under general 2. Left ring finger Flexor tenolysis, under general All of the preoperative paperwork including the consent was reviewed today. All the patient's questions were answered. The patient understands that they will be contacted by our pharmacy scheduler soon to schedule this procedure. Let Danika in OR know we will require the Tenolysis Knives for this procedure He denies Diabetes, blood thinners, asthma, heart, lung, kidney issues He will need an appointment with OT hand therapy 3-5 days post-op to begin work on ROM Orders: Orders OT Evaluation and Treatment Today M25.642 - Stiffness of left hand, not elsewhere classified, M67.90 - Unspecified disorder of synovium and tendon, unspecified site Coding Level of Care Code Est Pt Level 4 (61606) Diagnoses Tendon dysfunction M67.90 Stiffness of left hand joint M25.642 Fracture of phalanx of left middle finger S62.603A Fracture of phalanx of left ring finger with delayed healing S62.605G
[2025-06-18 11:31] VITALS: BMI 18.3
--- OUTSIDE RECORDS SUMMARY | 2025-06-18 14:52 | XMS_ITS | Encounter Summary ---
Author Organization [facility] Address [address] [place] [address] Phone Care Team Providers Care Master Brewer Name Role Phone Viral Ramirez MD Primary Care Provider [phone] Encounter Details Date Type Department Care Team (Late st Contact Info) Description 02/17/2017 Conversion Encounter [facility] [place] [address] [place] [address] Social History Tobacco Use Types Packs/Day Years [...] on filedocumented in this encounter Care Teams Master Brewer Relationship Specialty Start Date End Date Viral Ramirez MD [address] [place] [address] PCP - General 02/11/17 10/13/22 documented as of this encounter
--- OUTSIDE RECORDS SUMMARY | 2025-06-18 14:52 | XMS_ITS | Encounter Summary ---
Author Organization [facility] Address [address] [place] [address] Phone Care Team Providers Care Photographic Equipment Inspector Name Role Phone Viral Ramirez MD Primary Care Provider [phone] Encounter Details Date Type Department Care Team (Late st Contact Info) Description 08/22/2015 Documentation EM Family Medicine [address] [place] [address] Family Medicine, Physician [address] [place], [place] [phone] Social History Tobacco Use Types Packs/Day Years [...] on filedocumented in this encounter Care Teams Photographic Equipment Inspector Relationship Specialty Start Date End Date Viral Ramirez MD [address] [place] [address] KRISSY Spears [id number] PCP - General 02/11/17 10/13/22 documented as of this encounter
--- OUTSIDE RECORDS SUMMARY | 2025-06-18 14:52 | XMS_ITS | Clinical Summary ---
Author Organization [facility] Address [address] [place] [address] Phone Care Team Providers Care Spinning Supervisor Name Role Phone Unavailable Primary Care Provider [...]
--- OUTSIDE RECORDS SUMMARY | 2025-06-18 14:52 | XMS_ITS | Patient Health Record ---
Author Organization [facility] Address [address] [place] [address] Support Name Relationship Address Phone Kev Izaguirre Guarantor Unknown [phone] Allergies No Known Allergies Reason For Referral No Information Social History Sex Assigned At : Social History Observation Description Sex Assigned At Male Social History HIV Risk Assessment Social Info Question Answer Notes Additional Questions Is an HIV Risk Assessment being c onducted? Yes Have you been tested for HIV before? No Did you have a blood transfusion prior to 1985? No Do you have an unlicensed body piercing or tattoo? No Reproductive Life Plan: Social Info Question Answer Notes Reproductive Life Plan: Do you want to h ave children? No, I don't want to have children Not currently How sure are you that you will be able to use your control method without any problems? Very sure People's plans change. Is it possible you or your partner could ever decide to become ? Yes Human Trafficking: Social Info Question Answer Notes Human Trafficking Experienced: No PrEP for HIV: Social Info Question Answer Notes PrEP for HIV Is the client intere sted in beginning/continuing PrEP for HIV? No Sexual History: Social Info Question Answer Notes Sexual History: Sexual History Reviewed: Partner s, Practices, Protection/Past STIs Currently sexually active? No When was the last time you were sexually active? 02/01/2023 When you are sexually active, who are your partners? Women Your sexual activities include: oral intercourse, vaginal intercourse Do you use condoms? Yes Condoms are used: always Date of last unprotected intercourse: 02/01/2023 Number of partners in past 3 months: 0 Number of partners in past year: 1 Does your partner(s) currently have any STIs? No Counseling Provided: Social Info Question Answer Notes Counseling Provided Please indicate the length of time, in minutes, that counseling was provided. 6 Counseling Was Provided By: lydper Drugs/Alcohol: Social Info Question Answer Notes Drug/Alcohol Use Do you or have you used drugs? Yes, c urrently By what route are you taking drugs? Please check all that apply: Smoking Which drug(s) do you smoke? Marijuana When did you last use? Do you want to quit drugs? No Do you or have you used alcohol? Yes, currently Socially per client How many drinks per week? 0 When you drink, how many drinks do you have (in one sitting)? 0 Have you ever had more than 4 (women) or 6 (men) drinks at one time in the past year? Yes Food Access: Social Info Question Answer Notes Food Access The Client's current access to food is Secure Food Access Relationships: Social Info Question Answer Notes Relationships Has the client experienced any of the following: Client has never experienced harmful relationships Housing Social Info Question Answer Notes Housing The client's current living situation is: stable housing Tobacco Use: Social Info Question Answer Notes Tobacco Use: Do you/have you used tobacco? Yes, currently Client vapes with nicotine Tobacco Smoking Status Current every day smoker Section Notes: Katarzyna/ lesly Plan Of Treatment No Information Insurance Providers Payer Name Payer Address Payer Phone Subscriber Number Group Number Insured Name Patient Relationship to Insured Coverage Start Date Coverage End Date [facility] [address] [place], [place] [id number] Kev Izagurire Self - patient is the insured Medical (General) History Medical History History ICD Code No significant problems
--- OUTSIDE RECORDS SUMMARY | 2025-06-18 14:52 | XMS_ITS | Encounter Summary ---
Author Organization [facility] Address [address] [place] [address] Phone Care Team Providers Care Insemination Worker Name Role Phone Viral Ramirez MD Primary Care Provider [phone] Encounter Details Date Type Department Care Team (Late st Contact Info) Description 06/18/2013 Documentation EM Family Medicine [address] [place] [address] Family Medicine, Physician [address] [place], [place] [phone] Social History Tobacco Use Types Packs/Day Years [...] on filedocumented in this encounter Care Teams Insemination Worker Relationship Specialty Start Date End Date Viral Ramirez MD [address] [place] [address] KRISSY Separs [address] PCP - General 02/11/17 10/13/22 documented as of this encounter
--- OUTSIDE RECORDS SUMMARY | 2025-06-18 14:52 | XMS_ITS | Encounter Summary ---
Author Organization [facility] Address [address] [place] [address] Phone Care Team Providers Care Physician Relations Specialist Name Role Phone Viral Ramirez MD Primary Care Provider [phone] Encounter Details Date Type Department Care Team (Late st Contact Info) Description 07/23/2015 Documentation EM Family Medicine [address] [place] [address] Family Medicine, Physician [address] [place], [place] [phone] Social History Tobacco Use Types Packs/Day Years [...] on filedocumented in this encounter Care Teams Physician Relations Specialist Relationship Specialty Start Date End Date Viral Ramirez MD [address] [place] [address] KRISSY Spears [address] PCP - General 02/11/17 10/13/22 documented as of this encounter
== END 2025-06-18 11:59 | disposition home or self-care (01) ==
LOC: HO.HOS 11:17
DX: M67.942 Unspecified disorder of synovium and tendon, left hand (principal); M25.642 Stiffness of left hand, not elsewhere classified; S62.603A Fracture of unspecified phalanx of left middle finger, initial encounter for closed fracture; S62.605G Fracture of unspecified phalanx of left ring finger, subsequent encounter for fracture with delayed healing
CPT/HCPCS: 99024

== ENCOUNTER → 2025-06-18 11:16 | Outpatient (BNVA) | payer OTHER, SELFPAY | DX: S62.603A Fracture of unspecified phalanx of left middle finger, initial encounter for closed fracture (principal); S62.605G Fracture of unspecified phalanx of left ring finger, subsequent encounter for fracture with delayed healing; M67.942 Unspecified disorder of synovium and tendon, left hand; M25.642 Stiffness of left hand, not elsewhere classified | CPT/HCPCS: 99212 ==

== ENCOUNTER 2025-06-24 10:09 | Day surgery (SDC) | payer OTHER, SELFPAY ==
[2025-06-20 07:10] VITALS: BMI 18.3
[2025-06-24 10:38] VITALS: BMI 19.0
[2025-06-24] MEDS: Lactated Ringers 1,000 ML 50 ML IVCONT (10:44)
[2025-06-24 10:51] VITALS: BP 135/73; PULSE 100; RESP 18; TEMP 36.8; O2SAT 98
--- NOTE | 2025-06-24 11:00 | P.OP_ITS ---
Operative Note Operative Note Date of Service: 06/24/25 Narrative: Operative Note Narrative: Preop diagnosis: 1. Left middle finger FDP tendon adhesions within zone 2 2. Left ring finger FDP tendon adhesions within zone 2 Postop diagnosis: Same Procedure: 1. Left middle finger release of adhesions/tenolysis between the FDP tendon, the FDS tendon, the bone of the middle phalanx and the overlying flexor tendon sheath within zone 2 2. Left ring finger release of adhesions/tenolysis between the FDP tendon, the FDS tendon, the bone of the middle phalanx and the overlying flexor tendon sheath within zone 2 3. Closed manipulation of the left middle finger D IP joint 4. Closed manipulation of the left ring finger D IP joint Surgeon: Ryanne Parr MD Ticket Clerk: None Anesthesia: General Anesthesia Findings: In both fingers we found adhesions between the FDS and FDP tendons from the chiasm extending distally to the middle phalanx. The FDP tendons were found to be adherent both to the bone of the middle phalanx and also to the surrounding tendon sheath. Implants: None Tourniquet time: 87 minutes EBL: 5.0 ml Specimen: none Drains: None Complications: None Disposition: Brought to the recovery room in stable condition Plan: Early appointment with OT arrange to begin early active and passive range of motion exercises. I called and arranged 1st follow up with OT hand surgery 07/01/2025 at 02:30. He can begin daily wound care, washing with soap and water in the shower sink after his 1st appointment with OT hand therapy. No submerging under water however. Follow-up in 10-14 days for wound check, suture removal and to check range of motion Indications: The patient is a 25 year old young man with no active D IP flexion of the left middle and ring fingers in a patient who had previous delayed healing of left middle and ring finger middle phalanx fractures following delayed care for these injuries. . The risks and benefits of operative treatment, including but not limited to risk of damage to blood vessels, nerves, tendons, infection, recurrence, persistent pain or numbness, incomplete resolution of preoperative symptoms, or need for further surgery were discussed with the patient and they wished to proceed with surgery. Procedure: Once consent was obtained patient was brought back to the operating suite and placed in the operating table in a supine position. . Perioperative antibiotics and anesthesia was administered by the anesthesia team. A tourniquet was applied to the proximal aspect of the left upper extremity and the limb was prepped and draped in a standard surgical fashion. The limb was e levated exsanguinated with Esmarch bandage and the tourniquet inflated to 250 mm of mercury for a total tourniquet time of 87 minutes. Attention was 1st turned to the left ring finger. A Bg's type incision was made over the volar aspect of the left ring finger extending from about the A2 rachid region to the D IP flexion crease. Incision was made through the skin the subcutaneous tissues using a 15. Blade. I then carefully dissected down to the level of the flexor tendon sheath. I opened the A3 rachid over the PIP level of the flexor tendon sheath longitudinally using iris scissors. Within the A3 rachid I found adhesions between the FDP and FDS tendons and also the overlying tendon sheath. The adhesions extended proximally to the chiasm where the FDP tendon pass between the slips of the FDS tendon. All of these adhesions were carefully released using iris scissors as well as our tenolysis knives. I did make an oblique incision over the A1 rachid using a 15. Blade and also dissected down to the level of the flexor tendon sheath. The A1 rachid was opened longitudinally under direct visualization using a 15. Blade and tenotomy scissors. Fortunately, I did not appreciate adhesions between the FDP and FDS tendons in this area. The adhesions did extend distally from the A3 rachid area beneath the A4 rachid area to just proximal to the D IP joint. We found the FDP tendon to be adherent to the FDS tendon, the underlying bone of the middle phalanx, and the surrounding A4 rachid. I released all of the adhesions between the tendons, between the FDP tendon and the underlying bone, and between the tendons and the overlying A4 rachid and flexor tendon sheath. This was done with iris scissors, a 15. Blade and the tenolysis knives. Ultimately, I was able to free up both tendons where they were able to slide against each other, beneath the A2 rachid, and where the FDP tendon could slide beneath the A4 rachid. I also performed a closed manipulation on the D IP joint, bringing D IP flexion from about 40 degrees to close to 80 degrees. My Attention was then turned to the left middle finger.? A Bg's type incision was made over the volar aspect of the left middle finger extending from about the A2 rachid region to the D IP flexion crease.? Incision was made through the skin the subcutaneous tissues using a 15. Blade.? I then carefully dissected down to the level of the flexor tendon sheath.? I opened the A3 rachid over the PIP level of the flexor tendon sheath longitudinally using iris scissors.? Within the A3 rachid I found adhesions between the FDP and FDS tendons and also the overlying tendon sheath.? The adhesions extended proximally to the chiasm where the FDP tendon pass between the slips of the FDS tendon.? All of these adhesions were carefully released using iris scissors as well as our tenolysis knives.? I did make an oblique incision over the A1 rachid using a 15. Blade and also dissected down to the level of the flexor tendon sheath.? The A1 rachid was opened longitudinally under direct visualization using a 15. Blade and tenotomy scissors.? Fortunately, I did not appreciate adhesions between the FDP and FDS tendons in this area.? The adhesions did extend distally from the A3 rachid area beneath the A4 rachid area to just proximal to the D IP joint.? We found the FDP tendon to be adherent to the FDS tendon, the underlying bone of the middle phalanx, and the surrounding A4 rachid.? I released all of the adhesions between the tendons, between the FDP tendon and the underlying bone, and between the tendons and the overlying A4 rachid and flexor tendon sheath.? This was done with iris scissors, a 15. Blade and the tenolysis knives.? Ultimately, I was able to free up both tendons where they were able to slide against each other, beneath the A2 rachid, and where the FDP tendon could slide beneath the A4 rachid.? I also performed a closed manipulation on the D IP joint, bringing D IP flexion from about 40 degrees to close to 80 degrees. At this point the tourniquet was deflated and hemostasis obtained with a brief period of local pressure and bipolar electrocautery. The wounds were copiously irrigated with normal saline. The skin edges were reapproximated with 5-0 nylon suture. The wounds were infiltrated with some 0.5% plain ropivacaine for postop pain control and a sterile dressing was applied. The patient appears to have tolerated the procedure well and with no complications. All digits were well vascularized conclusion of the case.
--- NOTE | 2025-06-24 11:00 | MHC.SHP ---
Pre-Procedural Eval Section A - 24 Hr Update-Section A only Date of Service: 06/24/25 The patient is an INPATIENT: No Changes since office visit: No Cold of Flu in the past 2 weeks, No New Medical Problems, No Changes in Medication and No Patient answered all questions The patient has been examined within 24 hours of the surgical procedure. The History & Physical has been completed within 30 days and I have reviewed it.: Yes Section B - Complete if H&P > 30 days Chief Complaint: Left middle and ring finger Allergies: Allergies Allergy/AdvReac Type Severity Reaction Status Date / Time No Known Allergies Allergy Verified 06/24/25 10:52 Plan I have reviewed the history and physical and performed a pertinent physical examination on my patient. No changes have occurred unless specified. Time Spent With Patient Time: Total time managing care of this patient today ____ minutes.
--- OUTSIDE RECORDS SUMMARY | 2025-06-24 12:14 | XMS_ITS | Encounter Summary ---
Author Organization [facility] Address [address] [place] [id number] Phone Care Team Providers Care Rn Bariatric Name Role Phone Viral Ramirez MD Primary Care Provider [phone] Encounter Details Date Type Department Care Team (Late st Contact Info) Description 07/23/2015 Documentation [facility] Family [facility] [address] [place] [address] Family Medicine, Physician [address] [place], [place] [id number] Social History Tobacco Use Types Packs/Day Years [...] on filedocumented in this encounter Care Teams Rn Bariatric Relationship Specialty Start Date End Date Viral Ramirez MD [address] [place] [address] KRISSY Spears [id number] PCP - General 02/11/17 10/13/22 documented as of this encounter
--- OUTSIDE RECORDS SUMMARY | 2025-06-24 12:14 | XMS_ITS | Encounter Summary ---
Author Organization [facility] Address [address] [place] [id number] Phone Care Team Providers Care Center Administrator Name Role Phone Viral Ramirez MD Primary Care Provider [phone] Encounter Details Date Type Department Care Team (Late st Contact Info) Description 06/18/2013 Documentation [facility] Family [facility] [address] [place] [address] Family Medicine, Physician [address] [place], [place] [phone] Social History Tobacco Use Types Packs/Day Years [...] on filedocumented in this encounter Care Teams Center Administrator Relationship Specialty Start Date End Date Viral Ramirez MD [address] [place] [address] KRISSY Spears [id number] PCP - General 02/11/17 10/13/22 documented as of this encounter
--- OUTSIDE RECORDS SUMMARY | 2025-06-24 12:14 | XMS_ITS | Clinical Summary ---
Author Organization [facility] Address [address] [place] [phone] Phone Care Team Providers Care Drafter (Cad) Electrical Name Role Phone Unavailable Primary Care Provider [...]
--- OUTSIDE RECORDS SUMMARY | 2025-06-24 12:14 | XMS_ITS | Encounter Summary ---
Author Organization [facility] Address [address] [place] [address] Phone Care Team Providers Care Swimming Pool Attendant Name Role Phone Viral Ramirez MD Primary Care Provider Encounter Details Date Type Department Care Team (Late st Contact Info) Description 02/17/2017 Conversion Encounter [facility] [place] [address] [place] [address] Social History Tobacco Use Types Packs/Day Years [...] on filedocumented in this encounter Care Teams Swimming Pool Attendant Relationship Specialty Start Date End Date Viral Ramirez MD [address] [place] [address] PCP - General 02/11/17 10/13/22 documented as of this encounter
--- OUTSIDE RECORDS SUMMARY | 2025-06-24 12:14 | XMS_ITS | Encounter Summary ---
Author Organization [facility] Address [address] [place] [phone] Phone Care Team Providers Care Client Support Representative Name Role Phone Viral Ramirez MD Primary Care Provider [phone] Encounter Details Date Type Department Care Team (Late st Contact Info) Description 08/22/2015 Documentation EM Family [facility] [address] [place] [address] Family Medicine, Physician [address] [place], [place] [phone] Social History Tobacco Use Types Packs/Day Years [...] on filedocumented in this encounter Care Teams Client Support Representative Relationship Specialty Start Date End Date Viral Ramirez MD [address] [place] [address] KRISSY Spears [id number] PCP - General 02/11/17 10/13/22 documented as of this encounter
[2025-06-24 15:00] VITALS: BP 116/67; PULSE 80; RESP 16; TEMP 37.2; O2SAT 99
[2025-06-24 15:05] VITALS: BP 115/64; PULSE 81; RESP 12; O2SAT 99
[2025-06-24 15:10] VITALS: BP 115/71; PULSE 83; RESP 12; O2SAT 98
[2025-06-24 15:15] VITALS: BP 106/75; PULSE 81; RESP 13; O2SAT 98
[2025-06-24 15:30] VITALS: BP 123/81; PULSE 101; RESP 18; TEMP 36.9; O2SAT 100
== END 2025-06-24 16:13 | disposition home or self-care (01) ==
PROVIDERS: Visit Provider Orthopaedic Surgery
PROC: (CPT 26440; principal; 2025-06-24 12:00)
DX: S66.193A Other injury of flexor muscle, fascia and tendon of left middle finger at wrist and hand level, initial encounter (principal); S66.195A Other injury of flexor muscle, fascia and tendon of left ring finger at wrist and hand level, initial encounter; M67.844 Other specified disorders of tendon, left hand; M65.842 Other synovitis and tenosynovitis, left hand; M67.842 Other specified disorders of synovium, left hand; M25.642 Stiffness of left hand, not elsewhere classified; X58.XXXA Exposure to other specified factors, initial encounter; Y99.9 Unspecified external cause status; Y99.0 Civilian activity done for income or pay; Y92.9 Unspecified place or not applicable; Z87.81 Personal history of (healed) traumatic fracture
CPT/HCPCS: 26440 ×4; J0131; J0690; J1100; J1885; J2003; J2004; J2250; J2371; J2405; J2704; J2795; J3010

== ENCOUNTER → 2025-06-24 10:09 | Outpatient (BNV) | payer OTHER, SELFPAY | PROVIDERS: Visit Provider Orthopaedic Surgery | DX: S66.113A Strain of flexor muscle, fascia and tendon of left middle finger at wrist and hand level, initial encounter (principal); S66.115A Strain of flexor muscle, fascia and tendon of left ring finger at wrist and hand level, initial encounter | CPT/HCPCS: 26356; 26440 ==